=== PATIENT | male | born 1965 | race African-American/Black ===

== ENCOUNTER 2017-04-02 16:42 | Emergency (ER) | payer OTHER ==
[~2017-04-02] VITALS: Ht 180.3 cm; Wt 81.6 kg
[~2017-04-02 16:42] MED LIST: HYDR-4076 PO; LISI-603 PO; METO25TA6 PO
[2017-04-02] MEDS ORDERED: hydrALAZINE HCL IV 20 MG VIAL IV ONE (17:00)
[2017-04-02] MEDS ORDERED: hydrALAZINE HCL IV 20 MG VIAL ONE (17:08)
[2017-04-02 17:10] LABS: EOSINOPHILS # (AUTO) 0.3 /CMM (0.0-0.7); NEUTROPHILS # (AUTO) 2.2 /CMM (1.8-8.9)
[2017-04-02 17:15] LABS: BASOPHILS # (AUTO) 0.1 /CMM (0.0-0.2); BASOPHILS % (AUTO) 1.6 % (0.0-2.0); EOSINOPHILS % (AUTO) 4.8 % (0.0-6.0); HEMATOCRIT 53 % (39-51); HEMOGLOBIN 18.1 g/dL (13.5-17.5); LYMPHOCYTES # (AUTO) 2.7 /CMM (0.8-4.8); LYMPHOCYTES % (AUTO) 47.2 % (20.0-44.0); MEAN CORPUSCULAR HEMOGLOBIN 30 PG (26.0-33.0); MEAN CORPUSCULAR HGB CONC 34 g/dl (31.0-36.0); MEAN CORPUSCULAR VOLUME 88 fL (80-96); MONOCYTES # (AUTO) 0.3 /CMM (0.1-1.30); MONOCYTES % (AUTO) 6.1 % (2.0-12.0); NEUTROPHILS % (AUTO) 40.3 % (43.0-81.0); PLATELET COUNT (AUTO) 205 /CMM (150-450); RDW COEFFICIENT OF VARIATION 15.1 (11.5-15.0); RED BLOOD CELL COUNT(AUTO) 6.03 MIL/uL (4.5-6.0); WHITE BLOOD COUNT (AUTO) 5.6 K/uL (4.3-11.0)
[2017-04-02] MEDS ORDERED: ASPI81TA2 PO (17:17)
[2017-04-02] MEDS ORDERED: MULT-659 PO (17:17)
[2017-04-02] MEDS ORDERED: CHOL100044 PO (17:17)
--- NOTE | 2017-04-02 17:19 | NUR ---
IV ACCESS STARTED. PT MEDICATED ORDERED.
--- NOTE | 2017-04-02 17:19 | NUR ---
PT CAME IN FOR HIGH BP. NAD NOTED. PT DENIES SYMPTOMS. SEEN BY MD FOR EVAL. SAFETY AND COMFORT MEASURES PROVIDED. WILL MONITOR.
[2017-04-02 17:20] LABS: CALCIUM, SERUM 9.3 mg/dL (8.5-10.1); CARBON DIOXIDE 27 mmol/L (21-32); CHLORIDE 102 mmol/L (98-107); CREATININE 1.2 mg/dL (0.6-1.3); GLUCOSE 98 mg/dL (74-106); POTASSIUM 4.2 mmol/L (3.5-5.1); SODIUM SERUM 136 mmol/L (136-145); UREA NITROGEN, BLOOD 13 mg/dL (7-18)
[2017-04-02 17:28] LABS: TROPONIN I < 0.017 ng/mL (0.00-0.056)
[2017-04-02] MEDS ORDERED: CLONIDINE HCL 0.1 MG TABLET PO ONE (18:30)
[2017-04-02] MEDS ORDERED: CLONIDINE HCL 0.1 MG TABLET ONE (18:44)
--- NOTE | 2017-04-02 18:49 | NUR ---
Patient is resting comfortably in bed with eyes closed. Easily aroused.
[2017-04-02 19:56] LABS: BAND % (MANUAL) 0 % (0.0-5.0); NEUTROPHILS % (MANUAL) 36 (42-76)
[2017-04-02 19:57] LABS: BASOPHILS % (MANUAL) 0 % (0.0-2.0); EOSINOPHILS % (MANUAL) 3 % (0-4); LYMPHOCYTES % (MANUAL) 55 % (16-48); MONOCYTES % (MANUAL) 6 % (0-11.0)
--- NOTE | 2017-04-02 20:15 | NUR ---
IV removed. Catheter intact and site benign. Pressure and 4x4 applied to site. No bleeding noted.
[2017-04-02 20:27] VITALS: BP 143/82
--- NOTE | 2017-04-02 20:27 | NUR ---
Patient discharged to home in stable condition. Written and verbal after care instructions given. Patient verbalizes understanding of instruction.
== END 2017-04-02 20:28 | disposition home or self-care (01) ==
LOC: ER 16:50
DX: I10 Essential (primary) hypertension (principal); Z79.82 Long term (current) use of aspirin; Z87.891 Personal history of nicotine dependence
CPT/HCPCS: 36415; 80048; 84484; 85025; 93005; 96374; 99285; A4606; J0360; Z7610